=== PATIENT | male | born 1940 | race Caucasian/White ===

== ENCOUNTER → 2020-11-14 02:59 | Outpatient (CLI) | payer MEDICARE, OTHER, SELFPAY ==
[2020-11-14 21:05] LABS: SARS-CoV-2 RNA PCR Negative
== END ==
PROVIDERS: PCP Family Medicine; Visit Provider Internal Medicine Gastroenterology
DX: Z01.812 Encounter for preprocedural laboratory examination (principal); Z20.822 Contact with and (suspected) exposure to COVID-19
CPT/HCPCS: C9803; U0003; U0005

== ENCOUNTER 2020-11-17 00:29 | Day surgery (SDC) | payer MEDICARE, OTHER, SELFPAY ==
[2020-11-14 09:00] VITALS: BMI 38.0
[2020-11-17 06:32] VITALS: BP 127/82; PULSE 87; RESP 16; TEMP 36.6; O2SAT 92
[2020-11-17 06:36] VITALS: BMI 39.3
[2020-11-17] MEDS: LACTATED RINGERS 1,000 ML 150 ML IV CONT (06:46)
--- NOTE | 2020-11-17 07:33 | WPDANESEPPF ---
Anes - Initial Pre Proc Eval Procedure: Operation Date: 11/17/20 08:00 Proposed Procedures p Screening Colonoscopy - Gamaliel Singh DO Date/Time: 11/17/20 07:33 Surgeon: Gamaliel Singh DO Pre Op Diagnosis: Neoplasm Screening Patient Data Age: 80 Gender: M Height: 5 ft 9 in Weight: 120.9 kg Last Vital Signs Temp 98 F 11/17/20 06:32 Pulse 87 11/17/20 06:32 Resp 16 11/17/20 06:32 BP 127/82 11/17/20 06:32 Pulse Ox 92 11/17/20 06:32 Allergies Allergy/AdvReac Type Severity Reaction Status Date / Time No Known Allergies Allergy Verified 11/17/20 06:30 Home Medications Medication Instructions Recorded Confirmed Type furosemide 40 mg tablet 40 mg PO QAM PRN 07/15/19 10/13/20 History magnesium oxide 800 mg PO DAILY cap 07/15/19 10/13/20 History dofetilide 500 mcg PO BID 07/24/19 10/13/20 History omeprazole 40 mg capsule,delayed 40 mg PO DAILY #30 cap 12/01/19 10/13/20 Rx release zolpidem 10 mg tablet 10 mg PO . q.h.s. PRN tablet 01/06/20 10/13/20 History apixaban 5 mg tablet 5 mg PO BID #60 tablet 03/21/20 11/17/20 Rx finasteride 5 mg tablet 5 mg PO DAILY #90 tablet 04/19/20 10/13/20 Rx pramipexole 1.5 mg tablet 1.5 mg PO . Q.h.s. #30 tablet 06/02/20 10/13/20 Rx spironolactone 50 mg PO DAILY 10/13/20 10/13/20 History Patient hx anesthesia problems: none Family hx anesthesia problems: none PMFSH Past Medical History Medical History (Updated 11/17/20 @ 07:32 by Pascual Rodriguez MD) Body mass index (BMI) 40.0-44.9, adult (01/13/19) BPH without obstruction/lower urinary tract symptoms Chronic atrial fibrillation Microscopic hematuria Mixed hyperlipidemia DAVIAN on CPAP Recurrent deep vein thrombosis (DVT) of both lower extremities Family History Family History (Updated 01/28/19 @ 10:44 by DOCTOR UNKNOWN) Mother Patient's mother is , Onset Age: 67 Family history of malignant neoplasm Father Patient's father is , Onset Age: 80 Family history of malignant neoplasm Social History Social History Smoking status: Never smoker Alcohol intake: never Substance use: never Substance use type: does not use Living arrangements: with family Spiritual care concerns: No Anes - Eval Final PreProcedure Day of Procedure 11/17/20 07:33 Patient weight: morbidly obese Heart: irregular rhythm Lungs: clear to auscultation Airway: Mallampati scale class III Neurological: alert and oriented Last oral intake: >/= 8 hours ASA classification: IV Emergent: no Anesthetic plan: proceed Anesthesia type and monitoring: general GIVS and standard monitoring Informed Consent: The patient's anesthetic plan and its attendant risks and benefits were discussed with the patient/family/POA. Questions were solicited and answers provided to the satisfaction of the patient/family/POA.
--- NOTE | 2020-11-17 08:12 | WPDGICN ---
GI Consult Note Consult date/time: 11/17/20 08:12 HPI: Reason for visit is colonoscopy. This very pleasant gentleman is here At the request of the primary physician. Impression: Screening and surveillance colonoscopy. The patient has a history adenomatous colon polyps. He does have a history of recent rectal bleeding which is probably perianal in origin. Atrial fibrillation. BPH. GERD well controlled on medication. RLS. Morbid obesity. DAVIAN. DVT. Pulmonary embolus. Recommendation: Colonoscopy. History: This very pleasant gentleman is negative GI review systems. He did report some rectal bleeding with the preparation. Consists of bright red blood. He has a history reflux disease well controlled on medication. He has a previous history adenomatous colon polyps. He is here for colonoscopy. Physical examination: General: very pleasant patient in no acute distress. HEENT: Head was normocephalic sclerae is clear mouth without masses neck was supple. Heart: Rate rhythm regular without S3 or S4. Lungs: CTA. Abdomen: Soft with no guarding or rigidity. Bowel sounds were active. Neurologic: Cranial nerves 2 through 12 intact. No focal defects. No clonus. Musculoskeletal system: Revealed no joint tenderness or swelling no muscle atrophy. Extremities: Reveal no significant edema. Skin: Warm and dry with normal turgor. Mental status: intact. Patient is alert and oriented. Review of Systems Review of Systems: All systems reviewed & are unremarkable except as noted in HPI and below PMFSH Past Medical History Medical History (Updated 11/17/20 @ 07:32 by Pascual Rodriguez MD) Body mass index (BMI) 40.0-44.9, adult (01/13/19) BPH without obstruction/lower urinary tract symptoms Chronic atrial fibrillation Microscopic hematuria Mixed hyperlipidemia DAVIAN on CPAP Recurrent deep vein thrombosis (DVT) of both lower extremities Family History Family History (Updated 01/28/19 @ 10:44 by DOCTOR UNKNOWN) Mother Patient's mother is , Onset Age: 67 Family history of malignant neoplasm Father Patient's father is , Onset Age: 80 Family history of malignant neoplasm Social History Social History Smoking status: Never smoker Alcohol intake: never Substance use: never Substance use type: does not use Living arrangements: with family Spiritual care concerns: No Meds Home Medications and Allergies Home Medications Medication Instructions Recorded Confirmed Type furosemide 40 mg tablet 40 mg PO QAM PRN 07/15/19 10/13/20 History magnesium oxide 800 mg PO DAILY cap 07/15/19 10/13/20 History dofetilide 500 mcg PO BID 07/24/19 10/13/20 History omeprazole 40 mg capsule,delayed 40 mg PO DAILY #30 cap 12/01/19 10/13/20 Rx release zolpidem 10 mg tablet 10 mg PO . q.h.s. PRN tablet 01/06/20 10/13/20 History apixaban 5 mg tablet 5 mg PO BID #60 tablet 03/21/20 11/17/20 Rx finasteride 5 mg tablet 5 mg PO DAILY #90 tablet 04/19/20 10/13/20 Rx pramipexole 1.5 mg tablet 1.5 mg PO . Q.h.s. #30 tablet 06/02/20 10/13/20 Rx spironolactone 50 mg PO DAILY 10/13/20 10/13/20 History Allergies Allergy/AdvReac Type Severity Reaction Status Date / Time No Known Allergies Allergy Verified 11/17/20 06:30 Vital Signs Vital Signs - 24 hr 11/17/20 06:32 Temperature 36.6 C Pulse Rate 87 Respiratory Rate 16 Blood Pressure 127/82 Pulse Oximetry 92
[2020-11-17 08:41] VITALS: BP 112/73; PULSE 85; RESP 16; O2SAT 94
[2020-11-17 08:51] VITALS: BP 114/83; PULSE 94; RESP 28; O2SAT 95
[2020-11-17 09:01] VITALS: BP 118/82; PULSE 85; RESP 21; O2SAT 96
== END 2020-11-17 09:22 | disposition home or self-care (01) ==
PROVIDERS: PCP Family Medicine; Visit Provider Internal Medicine Gastroenterology
PROC: 0DJD8ZZ Inspection of Lower Intestinal Tract, Via Natural or Artificial Opening Endoscopic (ICD-10-PCS; CPT 45378; principal; 2020-11-17 08:00)
DX: Z12.11 Encounter for screening for malignant neoplasm of colon (principal); D12.3 Benign neoplasm of transverse colon; K63.5 Polyp of colon; K57.30 Diverticulosis of large intestine without perforation or abscess without bleeding; K64.8 Other hemorrhoids; I48.20 Chronic atrial fibrillation, unspecified; E78.2 Mixed hyperlipidemia; G47.33 Obstructive sleep apnea (adult) (pediatric); N40.0 Benign prostatic hyperplasia without lower urinary tract symptoms; G25.81 Restless legs syndrome; K21.9 Gastro-esophageal reflux disease without esophagitis; Z86.718 Personal history of other venous thrombosis and embolism; Z79.01 Long term (current) use of anticoagulants; E66.01 Morbid (severe) obesity due to excess calories; Z68.39 Body mass index [BMI] 39.0-39.9, adult; Z86.711 Personal history of pulmonary embolism
CPT/HCPCS: 45385; 88305; J2704; J7120

== ENCOUNTER → 2021-10-12 11:01 | Outpatient (CLI) | payer MEDICARE, OTHER, SELFPAY ==
--- NOTE | ~2021-10-12 | XR_ITS ---
EXAMINATION: XR lumbar spine min 4V EXAM DATE: 10/12/2021 11:19 INDICATION: M54.42 - Lumbago with sciatica, left side. TECHNIQUE: Lumber spine frontal, lateral, bilateral oblique projections. Coned down frontal and lat eral L5-S1 lumbar projections for interpretation. There is no prior study for comparison. FINDINGS: There are large anteriorly based bridging endplate osteophytes at L5-S1 with moderate to se patricia loss of this disc height. Moderate loss of the L3-4 and L4-5 disc height, mild to moderate at th e levels above. There is lower abdominal aortic and iliac moderate arteriosclerosis, ectasia. No acut e fracture line or spondylolysis identified. Mild lumbar levocurvature, could be positional or mild s coliosis. Sacrum, sacroiliac joints, sacral arcuate lines are intact. There is moderate lumbar arthro moses. IMPRESSION: 1. Moderate to severe lower lumbar disc disease, moderate arthropathy. 2. Aortoiliac ectasia. Reviewed, dictated and finalized at location B. ERCIAL LENDER
== END ==
PROVIDERS: PCP Family Medicine; Visit Provider Family Medicine
DX: M54.42 Lumbago with sciatica, left side (principal); I70.0 Atherosclerosis of aorta
CPT/HCPCS: 72110

== ENCOUNTER → 2022-01-25 15:37 | Outpatient (CLI) | payer MEDICARE, OTHER, SELFPAY ==
--- NOTE | ~2022-01-25 | XR_ITS ---
EXAMINATION: XR hip LT 2V w AP pelvis DATE: 01/25/2022 16:05 INDICATION: Left hip pain TECHNIQUE: Anteroposterior view of the pelvis and anteroposterior and frog-leg lateral views of the l eft hip were obtained. COMPARISON: CT dated 02/12/2014 FINDINGS: Bone alignment is normal. No fracture or suspected osteonecrosis. Moderate to severe lower lumbar spo ndylosis. Moderate right and mild left hip osteoarthritis. Mild bilateral sacral iliac osteoarthritis . IMPRESSION: 1. Mild left and moderate right hip osteoarthritis. 2. Moderate to severe lower lumbar spondylosis. Reviewed, dictated and finalized at location B.
== END ==
PROVIDERS: PCP Nurse Practitioner Family; Visit Provider Nurse Practitioner Family
DX: M16.12 Unilateral primary osteoarthritis, left hip (principal); M47.816 Spondylosis without myelopathy or radiculopathy, lumbar region; M47.898 Other spondylosis, sacral and sacrococcygeal region
CPT/HCPCS: 73502

== ENCOUNTER 2022-10-18 17:23 | Emergency (ER) | payer MEDICARE, OTHER, SELFPAY ==
--- NOTE | ~2022-10-18 | XR_ITS ---
XR chest 2V 10/18/2022 17:49 Indication: Shortness of breath Procedure: PA and lateral views of the chest Comparison: 06/18/2016 Findings: Chronic elevation of the left diaphragm. Chronic bibasilar atelectasis/scarring. No signifi cant effusion, edema or pneumothorax. Shallow inspiration. Pacemaker leads are in expected position. No acute osseous abnormality. Impression: 1: Shallow inspiration with chronic bibasilar atelectasis/scarring. Reviewed, dictated and finalized at location A. SHOP SUPERVISOR Impression: 1: Shallow inspiration with chronic bibasilar atelectasis/scarring.
[2022-10-18 17:27] VITALS: BP 145/71; PULSE 70; RESP 17; TEMP 36.3; O2SAT 95
--- NOTE | 2022-10-18 17:27 | ECG_ITS ---
Measurements Intervals [place] Rate: 69 P: 100 [place]: 279 QRS: -33 QRSD: 92 T: -24 QT: 404 QTc: 436 Interpretive Statements POSSIBLE eLECTRONIC ATRIAL PACEMAKER MARKED LEFT AXIS DEVIATION [QRS AXIS < -30] LOW QRS VOLTAGE IN PRECORDIAL LEADS [QRS DEFLECTION < 1.0 mV IN CHEST LEADS] PATTERN CONSISTENT WITH PULMONARY DISEASE NO PREVIOUS ECG AVAILABLE FOR COMPARISON Electronically Signed On 10-18-2022 20:14:29 CAR RENTAL AGENT by Lida Wetzel M.D.
[2022-10-18 17:45] LABS: Basophils Percent Auto 0.5 % (0.2-1.2); Eosinophils Absolute Auto 0.1 K/mm3 (0-0.3); Eosinophils Percent Auto 2.2 % (0-4.4); Hematocrit 43.3 % (42.0-52.0); Immature Granulocyte Absolute 0.01 K/mm3 (0.00-0.031); Immature Granulocyte Percent A 0.2 % (0-0.5); Lymphocytes Absolute Auto 1.59 K/mm3 (0.9-3.2); Lymphocytes Percent Auto 28.9 % (18.3-44.2); Mean Corpuscular HGB Conc 32.3 g/dl (32-36); Mean Corpuscular Hemoglobin 31.3 pg (26-34); Mean Corpuscular Volume 96.7 fl (80-100); Mean Platelet Volume 10.3 fl (7.4-10.4); Monocytes Absolute Auto 0.5 K/mm3 (0.1-0.6); Monocytes Percent Auto 9.6 % (2.6-8.5); Neutrophils Absolute Auto 3.2 K/mm3 (1.3-6.7); Neutrophils Percent Auto 58.6 % (45.5-73.1); Platelet Count Result 162 k/mm3 (150-375); Red Blood Count 4.48 M/mm3 (4.6-6.20); White Blood Count 5.5 K/mm3 (4.5-10.0)
[2022-10-18 17:54] LABS: Alanine Aminotransferase 88 U/L (6-50); Albumin Level 3.8 g/dL (3.5-5.1); Alkaline Phosphatase 62 U/L (38-126); Anion Gap 2 mmol/L (8-16); Aspartate Amino Transferase 91 U/L (17-59); Bilirubin,Total 0.5 mg/dL (0.2-1.3); Blood Urea Nitrogen 35 mg/dL (9-20); Calcium 8.2 mg/dL (8.4-10.2); Carbon Dioxide 28 mmol/L (22-30); Chloride 107 mmol/L (98-107); Estimated CRCL calculation 51 ml/min; Estimated Glomerular Filt Rate 53; Glucose 96 mg/dL (65-110); Potassium 4.5 mmol/L (3.4-5.0); Sodium 137 mmol/L (137-145)
--- NOTE | 2022-10-18 20:04 | PC.NURSE ---
Patient left due to wait time and states I am not in pain and I dont need to wait .
== END 2022-10-18 21:13 | disposition left against medical advice (07) ==
PROVIDERS: Emergency Provider Emergency Medicine; PCP Family Medicine
DX: R06.02 Shortness of breath (principal)
CPT/HCPCS: 36415; 71046; 80053; 85025; 93005; 99199

== ENCOUNTER 2024-06-16 01:07 | Day surgery (SDC) | payer MEDICARE, OTHER, SELFPAY ==
[2024-06-11 15:52] VITALS: BMI 39.1
--- NOTE | 2024-06-11 16:15 | PC.NURSE ---
Addendum entered by Mary Elizabeth RN 06/11/24 16:19: LAST DOSE ELIQUIS IS TO BE ON 06/13/2024 INSTRUCTED, ERROR MADE WHEN CHARTING DATE ON PREVIOUS NOTE Original Note: Spoke with [facility] regarding medication ELIQUIS. Pt. verbalizes understanding that the last dose of ELIQUIS is to be taken on 06/16/2024 and the Endoscopist will instruct them when to restart after the procedure.
[2024-06-16 09:49] VITALS: BP 134/76; PULSE 71; RESP 20; TEMP 36.4; O2SAT 93; BMI 41.1
[2024-06-16] MEDS: LACTATED RINGERS 1,000 ML 150 ML IV CONT (09:58)
--- NOTE | 2024-06-16 10:19 | WPDANESEPPF ---
Anes - Initial Pre Proc Eval Procedure: Operation Date: 06/16/24 11:00 Proposed Procedures p Colonoscopy - Papito Smith MD Date/Time: 06/16/24 10:19 Surgeon: Papito Smith MD Pre Op Diagnosis: benign neoplasm of colon Patient Data Age: 83 Gender: M Height: 1.75 m Weight: 126.4 kg Last Vital Signs Temp 36.4 C L 06/16/24 09:49 Pulse 71 06/16/24 09:49 Resp 20 06/16/24 09:49 BP 134/76 06/16/24 09:49 Pulse Ox 93 06/16/24 09:49 O2 Del Method Room Air 06/16/24 09:49 Allergies Allergy/AdvReac Type Severity Reaction Status Date / Time No Known Allergies Allergy Verified 06/16/24 09:47 Home Medications Medication Instructions Recorded Confirmed Type apixaban 5 mg tablet (Eliquis) 5 mg PO BID #60 tabs 03/21/20 06/16/24 Rx dofetilide 500 mcg capsule 500 mcg PO BID 05/01/21 06/11/24 History finasteride 5 mg tablet 5 mg PO DAILY #90 tabs 05/23/21 06/11/24 Rx amitriptyline 10 mg tablet 10 mg PO QHS #30 tabs 06/14/21 06/11/24 Rx sacubitril 24 mg-valsartan 26 mg 1 tablet PO BID 06/25/22 06/11/24 History tablet (Entresto) albuterol sulfate 90 mcg/actuation 2 puff inhalation QID PRN 01/16/23 06/16/24 Rx aerosol inhaler (Ventolin HFA) shortness of breath or wheezing #8.5 grams furosemide 40 mg tablet 80 mg PO QAM EDEMA #180 tabs 05/13/23 06/11/24 Rx magnesium oxide 400 mg PO BID 05/13/23 06/11/24 History pravastatin 40 mg tablet 40 mg PO QHS 05/13/23 06/11/24 History pramipexole 1.5 mg tablet 1.5 mg PO . Q.h.s. #45 tabs 12/02/23 06/11/24 Rx zolpidem 10 mg tablet (Ambien) 10 mg PO . q.h.s. PRN insomnia 12/25/23 06/11/24 Rx #30 tabs omeprazole 40 mg capsule,delayed 40 mg PO DAILY #30 caps 02/19/24 06/11/24 Rx release spironolactone 50 mg tablet 50 mg PO DAILY #90 tabs 05/14/24 06/11/24 Rx diltiazem HCl 60 mg tablet 60 mg PO BID 06/11/24 06/11/24 History Patient hx anesthesia problems: none Family hx anesthesia problems: none Results Review: All pre-operative results and documents have been reviewed as part of the pre-operative evaluation. [facility] Past Medical History Medical History Abnormal fasting glucose (11/30/20) glucose 103 on 11/30/2020. glucose 103 with hemoglobin A1c 6.2 on 07/21/2021 . Fasting glucose 104 on 11/10/2021. Glucose 111 with hemoglobin A1c 6.2 on 05/08/2022. Glucose 118 with hemoglobin A1c 6.1 on 12/24/2022. Fasting glucose 110 with hemoglobin A1c 6.1 on 11/12/2023. Fasting glucose 103 with hemoglobin A1c 6.5 with insulin level normal at 17.5 on 04/15/2024. Abnormal serum iron level (11/12/23) elevated at 188 with 58% saturation and ferritin normal at 137 with hemoglobin 15.4 on 11/12/2023.Iron 90 with 29% saturation, ferritin 151 on 04/15/2024. Adenomatous colon polyp colonoscopy 11/17/2020 with 2 polyps with recheck in 3 years. Altitude sickness preventative measures Body mass index (BMI) 40.0-44.9, adult (01/13/19) BPH without obstruction/lower urinary tract symptoms Bronchitis CHF (congestive heart failure) Chronic atrial fibrillation Chronic cough Chronic low back pain with left-sided sciatica (~09/2021) X-ray of the lumbar spine on 10/12/2021 reveals moderate to severe degenerative disc disease worse at L5-S1 with degenerative arthritis and atherosclerosis of the aorta and iliac arteries Chronic rhinitis COVID-19 virus IgG antibody detected (11/10/21) COVID antibody positive at greater than 150 on 11/10/2021. Elevated liver enzymes (10/18/22) AST 91, ALT 88 on 10/18/2022.Repeat liver test on 11/07/2022 were completely normal with AST 15 and ALT 17. AST 12, ALT 14 on 11/12/2023. Encounter for prostate cancer screening PSA 0.38 on 05/08/2022. Fatty liver noted on ultrasound by GI. AST 15 and ALT 17 on 07/21/2021 . AST 18 and ALT 20 on 11/10/2021. AST 12, ALT 15 on 04/15/2024. Gross hematuria (~07/26/22) Normal urinalysis 11/12/2023. Hip pain, left Microscop
--- NOTE | 2024-06-16 10:47 | PM.HPGS ---
History of Present Illness History of Present Illness Consent: Risks, benefits, and alternatives have been discussed and questions answered. Patient agrees to proceed with procedure. Chief complaint: benign neoplasm of colon Narrative: Eric Flores is a 83 year old male with colon polyp in 2020 Review of Systems Review of Systems: All systems reviewed & are unremarkable except as noted in HPI and below PMFSH Past Medical History Medical History (Updated 06/16/24 @ 10:47 by Papito Smith MD) Abnormal fasting glucose (11/30/20) glucose 103 on 11/30/2020. glucose 103 with hemoglobin A1c 6.2 on 07/21/2021 . Fasting glucose 104 on 11/10/2021. Glucose 111 with hemoglobin A1c 6.2 on 05/08/2022. Glucose 118 with hemoglobin A1c 6.1 on 12/24/2022. Fasting glucose 110 with hemoglobin A1c 6.1 on 11/12/2023. Fasting glucose 103 with hemoglobin A1c 6.5 with insulin level normal at 17.5 on 04/15/2024. Abnormal serum iron level (11/12/23) elevated at 188 with 58% saturation and ferritin normal at 137 with hemoglobin 15.4 on 11/12/2023.Iron 90 with 29% saturation, ferritin 151 on 04/15/2024. Adenomatous colon polyp colonoscopy 11/17/2020 with 2 polyps with recheck in 3 years. Altitude sickness preventative measures Body mass index (BMI) 40.0-44.9, adult (01/13/19) BPH without obstruction/lower urinary tract symptoms Bronchitis CHF (congestive heart failure) Chronic atrial fibrillation Chronic cough Chronic low back pain with left-sided sciatica (~09/2021) X-ray of the lumbar spine on 10/12/2021 reveals moderate to severe degenerative disc disease worse at L5-S1 with degenerative arthritis and atherosclerosis of the aorta and iliac arteries Chronic rhinitis Colon polyp COVID-19 virus IgG antibody detected (11/10/21) COVID antibody positive at greater than 150 on 11/10/2021. Elevated liver enzymes (10/18/22) AST 91, ALT 88 on 10/18/2022.Repeat liver test on 11/07/2022 were completely normal with AST 15 and ALT 17. AST 12, ALT 14 on 11/12/2023. Encounter for prostate cancer screening PSA 0.38 on 05/08/2022. Fatty liver noted on ultrasound by GI. AST 15 and ALT 17 on 07/21/2021 . AST 18 and ALT 20 on 11/10/2021. AST 12, ALT 15 on 04/15/2024. Gross hematuria (~07/26/22) Normal urinalysis 11/12/2023. Hip pain, left Microscopic hematuria trace blood on 07/21/2021. Urinalysis normal 11/12/2023. Mixed hyperlipidemia cholesterol 199, triglycerides 180, HDL 56, LDL 113 on 07/21/2021. Total cholesterol 179, HDL 49, triglycerides 137, LDL 105 on 11/10/2021. Total cholesterol 149, triglycerides 159, HDL 53, LDL 72 on 05/08/2022. Total cholesterol 155, HDL 52, triglycerides 160, LDL 77 on 12/24/2022. Cholesterol 155, triglycerides 201, HDL 52, LDL 73 with ratio 3.0 on 11/12/2023. Cholesterol 143, triglycerides 116, HDL 49, LDL 74 with ratio of 2.9 on 04/15/2024. Moderate persistent asthma, uncomplicated (~01/16/23) Morbid obesity with BMI of 40.0-44.9, adult Neoplasm of skin (~07/2023) base left neck 0.4 cm DAVIAN on CPAP CPAP at 18 cm of water pressure 2023. BiPAP. Hemoglobin 17.3 and hematocrit 53.3 On 11/10/2021. Hemoglobin 15.9 on 05/08/2022. CPAP titration on 06/15/2022 with pressure of 18 cm of water pressure with large dream Wear interface with heated humidity and ramp. Portal hypertension noted on ultrasound by GI Protein in urine (11/30/20) 1+ protein on 04/01/2021. 2+ protein on 07/21/2021.Trace protein on 05/08/2022. Urinalysis normal 11/12/2023. Recurrent deep vein thrombosis (DVT) of both lower extremities Renal insufficiency BUN 30, creatinine 1.32 with GFR 54 on 04/15/2024. Shortness of breath PFT on 01/10/2023 reveals severe obstructive airway disease with restrictive airway disease . Family History Family History Mother Patient's mother is , Onset Age: 67 Family history of malignant neoplasm Father Patient's father is , Onset A
[2024-06-16 11:20] VITALS: BP 109/77; PULSE 73; RESP 15; O2SAT 98
[2024-06-16 11:30] VITALS: BP 117/76; PULSE 69; RESP 24; O2SAT 93
[2024-06-16 11:40] VITALS: BP 124/84; PULSE 69; RESP 20; O2SAT 95
== END 2024-06-16 11:53 | disposition home or self-care (01) ==
PROVIDERS: PCP Family Medicine; Visit Provider Internal Medicine Gastroenterology
PROC: 0DJD8ZZ Inspection of Lower Intestinal Tract, Via Natural or Artificial Opening Endoscopic (ICD-10-PCS; CPT 45378; principal; 2024-06-16 11:00)
DX: Z09 Encounter for follow-up examination after completed treatment for conditions other than malignant neoplasm (principal); K64.8 Other hemorrhoids; K57.30 Diverticulosis of large intestine without perforation or abscess without bleeding; N40.0 Benign prostatic hyperplasia without lower urinary tract symptoms; I50.9 Heart failure, unspecified; I48.20 Chronic atrial fibrillation, unspecified; R05.3 Chronic cough; G89.29 Other chronic pain; M54.42 Lumbago with sciatica, left side; J31.0 Chronic rhinitis; J45.909 Unspecified asthma, uncomplicated; G47.33 Obstructive sleep apnea (adult) (pediatric); K76.6 Portal hypertension; N28.9 Disorder of kidney and ureter, unspecified; E66.01 Morbid (severe) obesity due to excess calories; Z68.41 Body mass index [BMI] 40.0-44.9, adult; Z79.01 Long term (current) use of anticoagulants; Z79.51 Long term (current) use of inhaled steroids; Z99.89 Dependence on other enabling machines and devices; Z86.718 Personal history of other venous thrombosis and embolism; Z86.0100 Personal history of colon polyps, unspecified; Z80.9 Family history of malignant neoplasm, unspecified
CPT/HCPCS: 45378; J2003; J2704; J7120

== ENCOUNTER 2025-03-12 14:29 | Outpatient (CLI) | payer MEDICARE, SELFPAY ==
--- NOTE | ~2025-03-12 | XR_ITS ---
EXAM/ PROCEDURE: XR hip RT min 2V - 03/12/2025 14:55 CDT HISTORY: 84 years old Male with M25.551 - Pain in right hip, NKI COMPARISON: None available TECHNIQUE: Two view(s) FINDINGS/ IMPRESSION: There are no fractures or dislocations.Joint space narrowing, subchondral sclerosis, subchondral cyst formation and osteophyte formation, compatible with mild to moderate osteoarthritis. Reviewed, dictated and finalized at location A.
--- NOTE | ~2025-03-12 | XR_ITS ---
Lumbosacral Spine: AP, oblique, and lateral views Clinical History: Pain Findings: The normal lordotic curve is maintained. No fracture or subluxation. There is severe degene rative disc narrowing at L3-L4, L4-L5 and L5-S1. There is moderate degenerative disc narrowing at L1- 2 and L2-L3. There is moderate advanced facet arthropathy throughout the lumbar spine. There is exten sive atherosclerotic calcifications with probable 3.6 cm distal abdominal aortic aneurysm. Impression: Advanced degenerative spondylitic changes, as above. Probable 3.6 cm distal abdominal aortic aneurysm. Reviewed, dictated and finalized at location M. Impression: Advanced degenerative spondylitic changes, as above. Probable 3.6 cm distal abdominal aortic aneurysm.
--- NOTE | ~2025-03-12 | XR_ITS ---
EXAM/ PROCEDURE: XR knee RT min 4V - 03/12/2025 14:55 CDT HISTORY: 84 years old Male with M25.561 - Pain in right knee, NKI COMPARISON: None available TECHNIQUE: Three view(s) FINDINGS/ IMPRESSION: There are no fractures or dislocations.Joint space narrowing, subchondral sclerosis, subchondral cyst formation and osteophyte formation, compatible with mild osteoarthritis. Reviewed, dictated and finalized at location A.
--- OUTSIDE RECORDS SUMMARY | 2025-03-12 14:38 | XMS_ITS ---
Author Organization [facility] ([address]) Address [address] [place] [address] Care Team Providers Care Tool Dispatcher Name Role Phone Vahe Aguirre [phone] REASON FOR VISIT [facility] Weight Loss, on tirzepatide, reports no perceivable appetite suppression, no side effects, reports taking lasix medication the day before appt, no new concerns, Desired weight loss: 75 lbs; -9.0 lbs since last week. Total of -11.8 since starting our weight loss program, No history MTCor MEN2 or pancreatitis, Concerned about future DM and OA Medications Medication SIG (Take, Route, Frequency, Duration) Notes Start Date End Date Status Zolpidem Tartrate 10 MG 1 tablet at bedt devon as needed Orally Once a day Active Dofetilide 500 MCG 1 capsule Orally Twi ce a day Active Magnesium Oxide 400 MG 1 tablet as neede d Orally Once a day Active Entresto 24-26 MG 1 tablet Orally Twic e a day Active Omeprazole 40 MG 1 capsule 30 minutes before morning meal Orally Once a day Active Furosemide 40 MG 1 tablet Orally Once a day Active Eliquis 5 MG as directed Orally Active Pravastatin Sodium 40 MG 1 tablet Orally Once a day Active Pramipexole Dihydrochloride 1.5 MG 1 tablet Orally Once a day Active Spironolactone 50 MG 1 tablet Orally Onc e a day Active Vital Signs Height 70 in 06/10/2024 Weight 279.0 lbs 06/10/2024 BMI 40.03 kg/m2 06/10/2024 Encounters Encounter Location Date Provider Diagnosis [facility] ([address]) [address] [place] [id number] 06/10/2024 Vahe Aguirre Chronic fatigue, unspecified R53.82 ; Abnormal weight gain R63.5 ; Other fatigue R53.83 and Other malaise R53.81 Assessments Encounter Date Diagnosis (ICD Code) Assessment Notes Treatment Notes Treatment Clinical Notes Section Notes 06/10/2024 Chronic fatigue, unspecified (ICD-10 - R53.82) 06/10/2024 Abnormal weight gain (ICD-10 - R63.5) 06/10/2024 Other fatigue (ICD-10 - R53.83) 06/10/2024 Other malaise (ICD-10 - R53.81) Plan Of Treatment Next Appt Details Follow Up: 1 Week, Reason: G LP-1 Agonist Administration Procedure Notes * Category Sub-Category Detail Notes Quell: Weight Management tirzepatide Indication: weig ht loss Concentration: 10 mg/mL Volume Administered: 0.25 mL Dose Administered: 2.5 mg Route: SQ Location: [facility] Frequency: weekly Lot Number/Expiration: Lot numbe r: [id number] Medication Source: Momo Adverse Reaction: None Progress Notes * David PAGEDOB:1940 ([age] yo M)Acc No.[id number]:06/10/2024 Weight Loss Patient: David RAMSEY Provider: Gamaliel Aguirre MD :1940 A ge:83 Y S ex:Male Date:06/10/2024 Address:[address] [place] [address] [id number] Subjective: * Chief Complaints: * 1 . [facility] Weight Loss, on tirzepatide, reports no perceivable appetite suppression, no side effects, reports taking lasix medication the day before appt, no new concerns. 2. Desired weight loss: 75 lbs; -9.0 lbs since last week. Total of -11.8 since starting our weight loss program. 3. No history MTC or MEN2 or pancreatitis. 4. Concerned about future DM and OA. * HPI: * Aesthetics & Wellness: The risks, benefits & alternatives were discussed regarding available treatment options. A treatment path was determined after reviewing the patients medical records, our verbal discussions and via joint decision-making Consents for our planned treatments were signed and are on file. * Medical History: * Medications: T aking Furosemide 40 MG Tablet 1 tablet Orally Once a day , Taking Eliquis 5 MG Tablet as directed Orally , Taking Pravastatin Sodium 40 MG Tablet 1 tablet Orally Once a day , Taking Pramipexole Dihydrochloride 1.5 MG Tablet 1 tablet Orally Once a day , Taking Spironolactone 50 MG Tablet 1 tablet Orally Once a day , Taking Dofetilide 500 MCG Capsule 1 capsule Orally Twice a day , Taking Magnesium Oxide 400 MG Tablet 1 tablet as needed Orally Once a day , Taking Entresto 24-26 MG Tablet 1 tablet Orally Twice a day , Taking Omeprazole 40 MG Capsule Delayed Release 1 capsule 30 minutes before morning meal Orally Once a day , Taking Zolpidem Tartrate 10 MG Tablet 1 tablet at bedtime as needed Orally Once a day Objective: * Vitals: H t: 70 in, Wt: 279.0 lbs, BMI:40.03Index. Assessment: * Assessment: 1. A bnormal weight gain - R63.5 (Primary) 2 . C hronic fatigue, unspecified - R53.82 3 . O ther fatigue - R53.83 4 . O ther malaise - R53.81 Plan: * Treatment: * Procedures: Q uell: Weight Management: tirzepatide I ndication w eight loss C oncentration 1 0 mg/mL V olume Administered 0 .25 mL D ose Administered 2 .5 mg R oute S Q L ocation L UA F requency w eekly L ot Number/Expiration Lot number: [id number] M edication Source [facility] A dverse Reaction N one * Follow Up: 1 Week (Reason: GLP-1 Agonist Administration) * Billing Information: * Visit Code: * Procedure Codes: * Electronic signature of Grant Aguirre MD, FAAAAI on 03/12/2025 at 02:38 PM CDT Sign off status: Pending * Provider: Gamaliel Aguirre MD Date: Generated for Cole jones/Cain/Chelsey on: 03/12/2025 02:38 PM CDT History and Physical Notes * HPI (History of Present Illness) Category Sub-Category Detail Notes Category Not es *Aesthetics & Wellness The r isks, benefits & alternatives were discussed regarding available treatment options. A treatment path was determined after reviewing the patients medical records, our verbal discussions and via joint decision-making Consents for our planned treatments were signed and are on file
--- OUTSIDE RECORDS SUMMARY | 2025-03-12 14:39 | XMS_ITS | Clinical Summary ---
Author Organization [facility] Address [address], [address] [address] Phone Care Team Providers Care Windows Software Developer Name Role Phone Troy Pickens MD Primary Care Provider [phone] Allergies No known active allergies Medications omeprazole (PRILOSEC) 20 MG CAPSULE DELAYED RELEASE Take 20 mg by mouth daily. Active zolpidem (AMBIEN) 10 MG Tablet Take 10 mg by mouth nightly as needed. Active apixaban (ELIQUIS) 5 MG Tablet Take 5 mg by mouth 2 times daily. Active finasteride (PROSCAR) 5 MG Tablet Take 5 mg by mouth daily. Active flecainide (TAMBOCOR) 100 MG Tablet Take 100 mg by mouth 2 times daily. Active pramipexole (MIRAPEX) 1 MG Tablet Take 1 mg by mouth daily. Active amiodarone HCl (CORDARONE) 100 MG Tablet Take 100 mg by mouth daily. 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 Pulse - - Temperature 36 C (96.8 F) 09/06/2015 7:30 AM PLANT AND EQUIPMENT WORKER Respiratory Rate 16 09/06/2015 7:30 AM PLANT AND EQUIPMENT WORKER Oxygen Saturation 94% 09/06/2015 7:30 AM PLANT AND EQUIPMENT WORKER Inhaled Oxygen Concentration - - Weight 124.7 kg (275 lb) 08/30/2015 11:00 AM PLANT AND EQUIPMENT WORKER Height 177.8 cm (5' 10) 08/30/2015 11:00 AM PLANT AND EQUIPMENT WORKER Body Mass Index 39.46 08/30/2015 11:00 AM PLANT AND EQUIPMENT WORKER Plan of Treatment Health Maintenance Due Date Last Done Comments Hepatitis C Virus (HCV) Screening 1940 TdaP Immunization 1940 Pneumococcal Immunization (5 0+ years) (1 of 1 - PCV) 1992 Zoster Immunization (1 of 2) 1992 Respiratory Syncytial Virus (RSV) Immunization (Adult) (1 - 1-dose 75+ series) 2017 SARS-COV-2 Immunization ( - 2023- season) 2024 Influenza Immunization (#1) 2025 Hepatitis B Immunization Aged Out No longer eligible based on patient's age to complete this topic Human Papillomavirus (HPV) Immunization Aged Out No longer eligible b ased on patient's age to complete this topic Meningococcal Immunization (ACWY) Aged Out No longer eligible based on patient's age to complete this topic Rotavirus Immunization Aged Out No lo nger eligible based on patient's age to complete this topic Insurance MEDICARE Care Teams Windows Software Developer Relationship Specialty Start Date End Date Troy Pickens MD [address] [address] PCP - General Family Medicine 09/06/15
--- OUTSIDE RECORDS SUMMARY | 2025-03-12 14:39 | XMS_ITS ---
Author Organization [facility] ([address]) Address [address] [place] [address] Care Team Providers Care Communications Supervisor Name Role Phone Vahe Aguirre [phone] REASON FOR VISIT [facility], on tirzepatide, reports some appetite suppression, no side effects, had a colonoscopy yesterday. Reviewed recommendations for protein, water, and calorie requirements, Desired weight loss: 75 lbs; +4.8 lbs since last week. Total of -1.4 lbs since starting our weight loss program, No history MTC or MEN2 or pancreatitis, Concerned about future DM and OA Medications Medication SIG (Take, Route, Frequency, Duration) Notes Start Date End Date Status Dofetilide 500 MCG 1 capsule Orally Twi ce a day Active Magnesium Oxide 400 MG 1 tablet as neede d Orally Once a day Active Entresto 24-26 MG 1 tablet Orally Twic e a day Active Omeprazole 40 MG 1 capsule 30 minutes before morning meal Orally Once a day Active Zolpidem Tartrate 10 MG 1 tablet at bedt devon as needed Orally Once a day Active Pramipexole Dihydrochloride 1.5 MG 1 tablet Orally Once a day Active Spironolactone 50 MG 1 tablet Orally Onc e a day Active Furosemide 40 MG 1 tablet Orally Once a day Active Eliquis 5 MG as directed Orally Active Pravastatin Sodium 40 MG 1 tablet Orally Once a day Active Vital Signs Height 70 in 06/17/2024 Weight 283.8 lbs 06/17/2024 BMI 40.72 kg/m2 06/17/2024 Encounters Encounter Location Date Provider Diagnosis [facility] ([address]) [address] [place] [phone] 06/17/2024 Vahe Aguirre Chronic fatigue, unspecified R53.82 ; Abnormal weight gain R63.5 ; Other fatigue R53.83 and Other malaise R53.81 Assessments Encounter Date Diagnosis (ICD Code) Assessment Notes Treatment Notes Treatment Clinical Notes Section Notes 06/17/2024 Chronic fatigue, unspecified (ICD-10 - R53.82) 06/17/2024 Abnormal weight gain (ICD-10 - R63.5) 06/17/2024 Other fatigue (ICD-10 - R53.83) 06/17/2024 Other malaise (ICD-10 - R53.81) Plan Of Treatment Next Appt Details Follow Up: 1 Week, Reason: G LP-1 Agonist Administration Procedure Notes * Category Sub-Category Detail Notes [facility] Weight Management tirzepatide Indication: weig ht loss Concentration: 10 mg/mL Volume Administered: 0.25 mL Dose Administered: 2.5 mg Route: SQ Location: Left abdomen Frequency: weekly Lot Number/Expiration: Lot numbe r: [id number] Medication Source: Our Security Team Adverse Reaction: None Progress Notes * David PAGEDOB:1940 ([age] yo M)Acc No.[id number]:06/17/2024 Weight Loss Patient: David RAMSEY Provider: Gamaliel Aguirre MD :1940 A ge:83 Y S ex:Male Date:06/17/2024 Address:[address] [place] [address] [facility] [id number] Subjective: * Chief Complaints: * 1 . [facility], on tirzepatide, reports some appetite suppression, no side effects, had a colonoscopy yesterday. Reviewed recommendations for protein, water, and calorie requirements. 2. Desired weight loss: 75 lbs; +4.8 lbs since last week. Total of -1.4 lbs since starting our weight loss program. 3. [...] * Vitals: H t: 70 in, Wt: 283.8 lbs, BMI:40.72Index. Assessment: * Assessment: 1. A bnormal weight [...] R oute S Q L ocation L eft abdomen F requency w eekly L ot Number/Expiration Lot number: [id number] M edication Source [facility] A dverse Reaction N one * Follow Up: 1 Week (Reason: GLP-1 Agonist Administration) * Billing Information: * Visit Code: * Procedure Codes: * Electronic signature of Grant Aguirre MD, FAAAAI on 03/12/2025 at 02:39 PM CDT Sign off status: Pending * Provider: Gamaliel Aguirre MD Date: Generated for Cole jones/Cain/Chelsey on: 03/12/2025 02:39 PM CDT History and Physical Notes * [...]
--- OUTSIDE RECORDS SUMMARY | 2025-03-12 14:39 | XMS_ITS | Patient Health Record ---
Author Organization [facility] ([address]) Address [address] [place] [address] Care Team Providers Care Director Dental Services Name Role Phone Vahe Aguirre Julia [phone] Reason For Referral No Information Medications Medication SIG (Take, Route, Frequency, Duration) Notes Start Date End Date Status Pramipexole Dihydrochloride 1.5 MG 1 tablet Orally Once a day Active Spironolactone 50 MG 1 tablet Orally Onc e a day Active Dofetilide 500 MCG 1 [...] as needed Orally Once a day Active Furosemide 40 MG 1 tablet Orally Once a day Active Eliquis 5 MG as directed Orally Active Pravastatin Sodium 40 MG 1 tablet Orally Once a day Active Problems Problem Type SNOMED Code ICD Code Onset Dates Problem Status W/U Status Risk Notes Problem Chronic fatigue syndrome (disorder) (38354535) Chronic fatigue, unspecified (R53.82) Active confirmed Vital Signs Oximetry 96 % 04/23/2024 Blood pressure diastolic 65 mm Hg 04/23/2024 Height 70 in 06/17/2024 Blood pressure systolic 107 mm Hg 04/23/2024 Weight 283.8 lbs 06/17/2024 BMI 40.72 kg/m2 06/17/2024 Encounters Encounter Location Date Provider Diagnosis [facility] ([address]) [address] [place] [phone] 04/23/2024 Vahe Aguirre Chronic fatigue, unspecified R53.82 ; Abnormal weight gain R63.5 ; Other fatigue R53.83 and Other malaise R53.81 [facility] ([address]) [address] [place] [address] 05/06/2024 Vahegalo Aguirre Chronic fatigue, unspecified R53.82 ; Abnormal weight gain R63.5 ; Other fatigue R53.83 and Other malaise R53.81 [facility] ([address]) [address] [place] [address] 05/13/2024 Vahegalo Aguirre Chronic fatigue, unspecified R53.82 ; Abnormal weight gain R63.5 ; Other fatigue R53.83 and Other malaise R53.81 [facility] ([address]) [address] [address] 05/20/2024 Vahe Timothy Chronic fatigue, unspecified R53.82 ; Abnormal weight gain R63.5 ; Other fatigue R53.83 and Other malaise R53.81 [facility] ([address]) [address] [place] [address] 05/27/2024 Vahe Timothy Chronic fatigue, unspecified R53.82 ; Abnormal weight gain R63.5 ; Other fatigue R53.83 and Other malaise R53.81 [facility] ([address]) [address] [address] 06/03/2024 Vahe Timothy Chronic fatigue, unspecified R53.82 ; Abnormal weight gain R63.5 ; Other fatigue R53.83 and Other malaise R53.81 [facility] ([address]) [address] [place] [address] 06/10/2024 Vahe Win Chronic fatigue, unspecified R53.82 ; Abnormal weight gain R63.5 ; Other fatigue R53.83 and Other malaise R53.81 [facility] ([address]) [address] [place] [address] 06/17/2024 Vahe Win Chronic fatigue, unspecified R53.82 ; Abnormal weight gain R63.5 ; Other fatigue R53.83 and Other malaise R53.81 [facility] ([address]) [address] [place] [phone] 04/29/2024 Vhae Aguirre Chronic fatigue, unspecified R53.82 ; Abnormal weight gain R63.5 ; Other fatigue R53.83 and Other malaise R53.81 [facility] ([address]) [address] [place] [phone] 03/16/2024 Vahe Aguirre [facility] ([address]) [address] [place] [phone] 04/29/2024 Vhae Aguirre Assessments Encounter Date Diagnosis (ICD Code) Assessment Notes Treatment Notes Treatment Clinical Notes Section Notes 04/23/2024 Chronic fatigue, unspecified (ICD-10 - R53.82) 04/23/2024 Abnormal weight gain (ICD-10 - R63.5) 04/29/2024 Chronic fatigue, unspecified (ICD-10 - R53.82) 04/29/2024 Abnormal weight gain (ICD-10 - R63.5) 05/06/2024 Chronic fatigue, unspecified (ICD-10 - R53.82) 05/06/2024 Abnormal weight gain (ICD-10 - R63.5) 05/13/2024 Chronic fatigue, unspecified (ICD-10 - R53.82) 05/13/2024 Abnormal weight gain (ICD-10 - R63.5) 05/20/2024 Chronic fatigue, unspecified (ICD-10 - R53.82) 05/20/2024 Abnormal weight gain (ICD-10 - R63.5) 05/27/2024 Chronic fatigue, unspecified (ICD-10 - R53.82) 05/27/2024 Abnormal weight gain (ICD-10 - R63.5) 06/03/2024 Chronic fatigue, unspecified (ICD-10 - R53.82) 06/03/2024 Abnormal weight gain (ICD-10 - R63.5) 06/10/2024 Chronic fatigue, unspecified (ICD-10 - R53.82) 06/10/2024 Abnormal weight gain (ICD-10 - R63.5) 06/17/2024 Chronic fatigue, unspecified (ICD-10 - R53.82) 06/17/2024 Abnormal weight gain (ICD-10 - R63.5) 06/17/2024 Other fatigue (ICD-10 - R53.83) 06/10/2024 Other fatigue (ICD-10 - R53.83) 06/03/2024 Other fatigue (ICD-10 - R53.83) 05/27/2024 Other fatigue (ICD-10 - R53.83) 05/20/2024 Other fatigue (ICD-10 - R53.83) 05/13/2024 Other fatigue (ICD-10 - R53.83) 05/06/2024 Other fatigue (ICD-10 - R53.83) 04/29/2024 Other fatigue (ICD-10 - R53.83) 04/23/2024 Other fatigue (ICD-10 - R53.83) 04/29/2024 Other malaise (ICD-10 - R53.81) 05/06/2024 Other malaise (ICD-10 - R53.81) 05/13/2024 Other malaise (ICD-10 - R53.81) 05/20/2024 Other malaise (ICD-10 - R53.81) 05/27/2024 Other malaise (ICD-10 - R53.81) 06/03/2024 Other malaise (ICD-10 - R53.81) 06/10/2024 Other malaise (ICD-10 - R53.81) 06/17/2024 Other malaise (ICD-10 - R53.81) 04/23/2024 Other malaise (ICD-10 - R53.81) Plan Of Treatment No Information
--- OUTSIDE RECORDS SUMMARY | 2025-03-12 14:39 | XMS_ITS ---
Author Organization [facility] ([address]) Address [address] [place] [phone] Care Team Providers Care Boiler Washer Name Role Phone Vahe Aguirre Unavailable [phone] REASON FOR VISIT [facility], on tirzepatide, reports no perceivable appetite suppression, no side effects, reports not taking diuretic medication for the last two days before appt, encouraged to take medication before next appt. No new concerns, Desired weight loss: 75 lbs; +7.0 lbs since last week. Total of +2.8 since starting our weight loss program, No history MTC or MEN2 or pancreatitis, Concerned about future DM and OA Medications Medication SIG (Take, Route, Frequency, Duration) Notes Start Date End Date Status Omeprazole 40 MG 1 capsule 30 minutes before morning meal Orally Once a day Active Entresto 24-26 MG 1 tablet Orally Twic e a day Active Zolpidem Tartrate 10 MG 1 tablet at bedt devon as needed Orally Once a day Active Magnesium Oxide 400 MG 1 tablet as neede d Orally Once a day Active Dofetilide 500 MCG 1 capsule Orally Twi ce a day Active Eliquis 5 MG as directed Orally Active Furosemide 40 MG 1 tablet Orally Once a day Active Pramipexole Dihydrochloride 1.5 MG 1 tablet Orally Once a day Active Pravastatin Sodium 40 MG 1 tablet Orally Once a day Active Spironolactone 50 MG 1 tablet Orally Onc e a day Active Vital Signs Height 70 in 06/03/2024 Weight 288.0 lbs 06/03/2024 BMI 41.32 kg/m2 06/03/2024 Encounters Encounter Location Date Provider Diagnosis [facility] ([address]) [address] [place] [phone] 06/03/2024 Vahe Aguirre Chronic fatigue, unspecified R53.82 ; Abnormal weight gain R63.5 ; Other fatigue R53.83 and Other malaise R53.81 Assessments Encounter Date Diagnosis (ICD Code) Assessment Notes Treatment Notes Treatment Clinical Notes Section Notes 06/03/2024 Chronic fatigue, unspecified (ICD-10 - R53.82) 06/03/2024 Abnormal weight gain (ICD-10 - R63.5) 06/03/2024 Other fatigue (ICD-10 - R53.83) 06/03/2024 Other malaise (ICD-10 - R53.81) Plan Of Treatment Next Appt Details Follow Up: 1 Week, Reason: G LP-1 Agonist Administration Procedure Notes * Category Sub-Category Detail Notes [facility]: Weight Management tirzepatide Indication: weig ht loss Concentration: 10 mg/mL Volume Administered: 0.25 mL Dose Administered: 2.5 mg Route: SQ Location: [place] Frequency: weekly Lot Number/Expiration: Lot numbe r: [id number] Medication Source: [employer] Adverse Reaction: None Progress Notes * David PAGEDOB:1940 ([age] yo M)Acc No.[id number]:06/03/2024 Weight Loss Patient: David RAMSEY Provider: Gamaliel Aguirre MD :1940 A ge:83 Y S ex:Male Date:06/03/2024 Address:[address] [place] [address] , [facility] Subjective: * Chief Complaints: * 1 . [facility], on tirzepatide, reports no perceivable appetite suppression, no side effects, reports not taking diuretic medication for the last two days before appt, encouraged to take medication before next appt. No new concerns. 2. Desired weight loss: 75 lbs; +7.0 lbs since last week. Total of +2.8 since starting our weight loss program. 3. [...] * Vitals: H t: 70 in, Wt: 288.0 lbs, BMI:41.32Index. Assessment: * Assessment: 1. A bnormal weight [...] mg R oute S Q L ocation R UA F requency w eekly L ot Number/Expiration Lot number: [id number] M edication Source H [facility] A dverse Reaction N one * Follow Up: 1 Week (Reason: GLP-1 Agonist Administration) * Billing Information: * Visit Code: * Procedure Codes: * Electronic signature of Grant Aguirre MD, FAAAAI on 03/12/2025 at 02:38 PM CDT Sign off status: Pending * Provider: Gamaliel Aguirre MD Date: Generated for Printi ng/Farosemarie/eTransmitting on: 03/12/2025 02:38 PM CDT History and [...]
== END 2025-03-12 14:30 | disposition home or self-care (01) ==
PROVIDERS: PCP Family Medicine; Visit Provider Nurse Practitioner Family
DX: M25.561 Pain in right knee (principal); M25.551 Pain in right hip; M47.896 Other spondylosis, lumbar region
CPT/HCPCS: 72110; 73502; 73564

== ENCOUNTER 2025-07-09 09:00 | Outpatient (RCR) | payer MEDICARE, OTHER, SELFPAY ==
--- NOTE | 2025-06-03 14:00 | OPREHPOC ---
Outpatient Therapy Plan of Care This is a Multidisciplinary Plan of Care that may contain components documented by all disciplines (PT, OT, and ST.) PT Problem 1 PT Problem #1 Knowledge Deficit PT Goal 1 Goal / Goal Update Pt will demo good understanding of diagnosis, prognosis and HEPs Target Visit 10 PT Problem 2 PT Problem #2 Pain PT Goal 1 Goal / Goal Update Pt will report 1-2/10 pain level at worst when getting up from the chair and when walking. Target Visit 10 PT Problem 3 PT Problem #3 Impaired Gait PT Goal 1 Goal / Goal Update 1. Pt will demo normalized gait pattern with improved heel strike and stride length bilaterally without AD and without discomfort. 2. Pt will ambulate 300ft or more without seated rest break in 2 minutes to improve community ambulation. Target Visit 10 PT Problem 4 PT Problem #4 Impaired Strength PT Goal 1 Goal / Goal Update Pt will perform SLS with improved stability x 10 seconds or more without AD. Target Visit 10
--- NOTE | 2025-06-03 14:00 | PTOPEVAL1 ---
Assessment and note entered by Mary Block, PT Evaluation Information Assessment Status Evaluation Diagnosis G89. 29, M54.4 ICD-10 Condition Codes (PT) Radiculopathy, lumbar region M54.16,Pain in right hip M25.551 Onset 2 years Subjective Information Pt reports feeling back pain that started with Sciatic nerve involvement a couple years ago. Recently, pt notice that getting up from a chair and walking is getting more difficult and he is limping all the time, pain is described as sharp and shooting down to the side of his thigh. 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 Repeated bending and getting up makes the pain worse. No pain in the morning but when he walk 20 ft, to the bathroom then it starts to bother him. Has 10-15 steps stairs with 1 railing, is difficult, also have balance problems. Reported Pain Level Pain Score 0,1: Self Report Assessment PT Clinical Summary Pt presents to therapy with c/o back and R leg pain, demos weakness, postural instability, ROM deficits, antalgic gait pattern impacting safety and ambulation tolerance. He will benefit from skilled PT to improve flexibility, reduce pain, improve general strength and improve overall functional mobility without discomfort. Plan of Care Interventions Electrical Stimulation,Gait Training,Hot Pack/Cold Pack,Manual Therapy,Neuro Re-education,Patient/ Caregiver Education,Therapeutic Activities, Therapeutic Exercise,Ultrasound PT Services Indicated Yes Treatment Frequency and 2x/wk x 12 sessions Duration These treatments will address the objective and functional deficits as defined above. The patient will be advanced safely and appropriately in order for the patient to progress towards his/her prior level of function. Additional exercises will be introduced and as well as a comprehensive home exercise program upon discharge, if needed, ?to ensure carryover of functional gains achieved in the clinic. This treatment plan has been reviewed and agreement upon by the patient.
--- NOTE | 2025-06-07 13:52 | PCPTNOTE ---
Patient did not show up for scheduled appointment this date. Called and left voicemail informing Pt of missed appointment and reminded of upcoming appointment on 06/09/25 @ 15:45. This is Pt's first no show.
--- NOTE | 2025-06-22 09:28 | PCPTNOTE ---
Pt canceled due to over sleeping after staying up late.
--- NOTE | 2025-07-09 19:11 | PTOPDC ---
Assessment and note entered by Mary Block, PT Discharge Information Assessment Status Discharge Diagnosis G89. 29, M54.4 ICD-10 Condition Codes (PT) Radiculopathy, lumbar region M54.16,Pain in right hip M25.551 Onset 2 years Subjective Information Pt reports feeling back pain that started with Sciatic nerve involvement a couple years ago. Recently, pt notice that getting up from a chair and walking is getting more difficult and he is limping all the time, pain is described as sharp and shooting down to the side of his thigh. 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 Repeated bending and getting up makes the pain worse. No pain in the morning but when he walk 20 ft, to the bathroom then it starts to bother him. Has 10-15 steps stairs with 1 railing, is difficult, also have balance problems. Reported Pain Level Pain Score 0,0: Self Report Assessment PT Clinical Summary Pt received a total of 7 treatment sessions, demos gains in mobility and strength, reduction in pain levels. However, he continue to show deficits in posture, endurance and muscle imbalance impacting his ability to perform functional mobility. Pt wanted to be DC from skilled PT and wanted to perform HEPs independently. Skilled PT discontinued at this time. Plan of Care PT Services Indicated No
== END 2025-07-12 12:50 | disposition home or self-care (01) ==
LOC: ANHPT 09:00
PROVIDERS: PCP Family Medicine; Visit Provider Family Medicine
DX: M54.41 Lumbago with sciatica, right side (principal); G89.29 Other chronic pain
CPT/HCPCS: 97110; 97116; 97161; 97530; 97750